=== PATIENT | male | born 1990 | race African-American/Black ===

== ENCOUNTER 2020-01-19 04:16 | Emergency (ER) | payer MEDICAID ==
[2020-01-19] MEDS ORDERED: Ondansetron 4 MG/2 ML SDV IVPUSH ONE ×2 (04:52→07:34)
[2020-01-19] MEDS ORDERED: HYDROmorphone 0.5 MG/0.5 ML Syringe IVPUSH ONE (04:52)
[2020-01-19] MEDS ORDERED: Sodium Chloride 0.9% 1,000 ML IV SCH (05:00)
--- NOTE | 2020-01-19 05:06 | EDM.PDOC ---
ED HPI GENERAL MEDICAL PROBLEM - General Chief Complaint: Gastrointestinal Problem Stated Complaint: VOMITTING PAIN HAS CANCER Time Seen by Provider: 01/19/20 04:52 Source of Information: Reports: Patient History Limitations: Reports: No Limitations - History of Present Illness INITIAL COMMENTS - FREE TEXT/NARRATIVE: This is a 29-year-old male. He states he has non-Hodgkin's lymphoma and he had chemotherapy about a year ago and he has lesions to his back and he is going to get radiation here pretty soon to his back to help with those lesions. He is on Dilaudid 2 mg every 4 hours for his back pain. Apparently 2 days ago he started having some difficulty in keeping food and fluids down so he says he has not been taking his pain medications for the last 2 days. Now he is getting abdominal cramps and additional nausea and vomiting and he comes to the ER for evaluation. He has been on the Dilaudid for at least a year. He states he has not run out of his medications but he just has not been able to keep them down. He denies any significant fever or chills. Have some mild diarrhea. Back Pain Score (Numeric/FACES): 10 - Related Data Allergies Allergy/AdvReac Type Severity Reaction Status Date / Time haloperidol [From Haldol] Allergy Shortness Verified 01/19/20 04:31 of Breath ketorolac [From Toradol] Allergy Shortness Verified 01/19/20 04:31 of Breath metoclopramide [From Reglan] Allergy Shortness Verified 01/19/20 04:31 of Breath prochlorperazine Allergy Shortness Verified 01/19/20 04:31 [From Compazine] of Breath Home Meds: Home Meds Docusate Sodium [Colace] 100 mg PO DAILY 01/19/20 [History] HYDROmorphone [Dilaudid] 2 mg PO Q4H PRN 01/19/20 [History] Hydrocodone/Acetaminophen [Hydrocodon-Acetaminophen 5-325] 1 each PO Q4H PRN # 15 tablet 01/19/20 [Rx] Ondansetron HCl [Zofran] 4 mg PO Q6H PRN #20 tablet 01/19/20 [Rx] Pantoprazole Sodium [Protonix] 20 mg PO DAILY 01/19/20 [History] Promethazine [Phenadoz] 25 mg .XX Q6H PRN #12 supp 01/19/20 [Rx] diphenhydrAMINE [Benadryl] 25 mg PO BID 01/19/20 [History] Past Medical History Gastrointestinal History: Reports: Other (See Below) Other Gastrointestinal History: intussucepsion Musculoskeletal History: Reports: Other (See Below) Other Musculoskeletal History: bone marrow biopsy, spinal tap. Oncologic (Cancer) History: Reports: Non-Hodgkin's Lymphoma Social & Family History - Tobacco Use Smoking Status *Q: Never Smoker - Recreational Drug Use Recreational Drug Use: Yes Drug Use in Last 12 Months: Yes Recreational Drug Type: Reports: Marijuana/Hashish ED ROS GENERAL - Review of Systems Review Of Systems: See Below Constitutional: Denies: Fever, Chills HEENT: Reports: No Symptoms Respiratory: Denies: Shortness of Breath, Cough Cardiovascular: Denies: Chest Pain Endocrine: Reports: No Symptoms GI/Abdominal: Reports: Abdominal Pain, Diarrhea, Nausea, Vomiting : Reports: No Symptoms Musculoskeletal: Reports: Back Pain Skin: Reports: No Symptoms Neurological: Reports: No Symptoms Psychiatric: Reports: No Symptoms Hematologic/Lymphatic: Reports: No Symptoms ED EXAM, GI/ABD - Physical Exam Exam: See Below Exam Limited By: No Limitations General Appearance: Alert, WD/WN, Mild Distress Eyes: Bilateral: Normal Appearance Ears: Normal External Exam, Normal Canal, Normal TMs Nose: Normal Inspection Throat/Mouth: Normal Inspection, Normal Lips, Normal Voice, No Airway Compromise , Other (Teeth are in very poor repair with advanced dental caries) Head: Normocephalic Neck: Supple Respiratory/Chest: No Respiratory Distress, Lungs Clear, Normal Breath Sounds Cardiovascular: Regular Rate, Rhythm, No Murmur GI/Abdominal Exam: Other (Complains of tenderness all over his abdomen but there is no masses and no rebound noted, bowel sounds are decreased) Back Exam: Full Range of Motion, Other (Planes of pain in his mid and lower back area no obvious abnormality noted) Extremities: Normal Inspection, Normal Range of Motion Neurological: Alert, Oriented Psychiatric: Anxious Skin Exam: Warm, Dry Course - Vital Signs Last Recorded V/S: Last Vital Signs Temp 98.8 F 01/19/20 04:32 Pulse 64 01/19/20 08:05 Resp 19 01/19/20 04:32 BP 120/73 01/19/20 08:05 Pulse Ox 100 01/19/20 08:05 - Orders/Labs/Meds Orders: Active Orders 24 hr Category Date Time Status Sodium Chloride 0.9% [Normal Saline] 1,000 ml Med 01/19/20 05:00 Active IV ASDIRECTED Medication Orders Sodium Chloride (Normal Saline) 1,000 mls @ 1,000 mls/hr IV ASDIRECTED MARLENE Last Admin: 01/19/20 05:43 Dose: 1,000 mls/hr Labs: Laboratory Tests 01/19/20 01/19/20 Range/Units 05:16 05:16 WBC 8.93 (4.23-9.07) K/mm3 RBC 5.19 (4.63-6.08) M/mm3 Hgb 14.8 (13.7-17.5) gm/dl Hct 43.4 (40.1-51.0) % MCV 83.6 (79.0-92.2) fl MCH 28.5 (25.7-32.2) pg MCHC 34.1 (32.2-35.5) g/dl RDW Std Deviation 41.9 (35.1-43.9) fL Plt Count 188 (163-337) K/mm3 MPV 10.6 (9.4-12.3) fl Neut % (Auto) 64.0 (34.0-67.9) % Lymph % (Auto) 23.0 (21.8-53.1) % [place] % (Auto) 10.1 (5.3-12.2) % Eos % (Auto) 2.0 (0.8-7.0) Baso % (Auto) 0.9 (0.1-1.2) % Neut # (Auto) 5.72 H (1.78-5.38) K/mm3 Lymph # (Auto) 2.05 (1.32-3.57) K/mm3 [place] # (Auto) 0.90 H (0.30-0.82) K/mm3 Eos # (Auto) 0.18 (0.04-0.54) K/mm3 Baso # (Auto) 0.08 (0.01-0.08) K/mm3 Sodium 143 (136-145) mEq/L Potassium 3.4 L (3.5-5.1) mEq/L Chloride 105 (98-107) mEq/L Carbon Dioxide 30 (21-32) mEq/L Anion Gap 11.4 (5-15) BUN 9 (7-18) mg/dL Creatinine 1.0 (0.7-1.3) mg/dL Est Cr Clr Drug Dosing 94.08 mL/min Estimated GFR (MDRD) > 60 (>60) mL/min BUN/Creatinine Ratio 9.0 L (14-18) Glucose 89 (74-106) mg/dL Calcium 8.6 (8.5-10.1) mg/dL Total Bilirubin 0.6 (0.2-1.0) mg/dL AST 16 (15-37) U/L ALT 27 (16-63) U/L Alkaline Phosphatase 72 (46-116) U/L Total Protein 7.2 (6.4-8.2) g/dl Albumin 3.9 (3.4-5.0) g/dl Globulin 3.3 gm/dL Albumin/Globulin Ratio 1.2 (1-2) Meds: Medications Generic Name Dose Route Start Last Admin Trade Name Freq PRN Reason Stop Dose Admin Sodium Chloride 1,000 mls @ 1,000 mls/hr 01/19/20 05:00 01/19/20 05:43 Normal Saline IV 1,000 mls/hr ASDIRECTED MARLENE Administration Discontinued Medications Generic Name Dose Route Start Last Admin Trade Name Freq PRN Reason Stop Dose Admin Hydromorphone HCl 0.5 mg 01/19/20 04:52 01/19/20 05:45 Dilaudid IVPUSH 01/19/20 04:53 0.5 mg ONETIME ONE Administration Hydromorphone HCl 1 mg 01/19/20 07:34 01/19/20 07:39 Dilaudid IVPUSH 01/19/20 07:35 1 mg ONETIME ONE Administration Ondansetron HCl 4 mg 01/19/20 04:52 01/19/20 05:44 Zofran IVPUSH 01/19/20 04:53 4 mg ONETIME ONE Administration Ondansetron HCl 4 mg 01/19/20 07:34 01/19/20 07:39 Zofran IVPUSH 01/19/20 07:35 4 mg ONETIME ONE Administration - Re-Assessments/Exams Free Text/Narrative Re-Assessment/Exam: 01/19/20 05:35 I attempted to find some records on the patient and his pain medication use from [place] as well as from here when I pull up his record he is not received any pain medications that have been documented in the monitoring system from [place] since June 2019. At that time he was on hydrocodone and oxycodone but he is never been on Dilaudid. When he came appear November he got promethazine with codeine syrup from 2 different physicians but no Dilaudid. He states he gotten Dilaudid from his doctors but I cannot find any record. He indicates he will attempt to find the record for me. 01/19/20 07:35 The patient was not able to get any medical records for me. He says because of the time zone difference he will be till later this morning that he can get anything. I will give him some more Zofran and a milligram of Dilaudid after which I will give him a prescription for some Zofran and some hydrocodone for home but he has to follow-up with his family doctor since we do not treat chronic pain in the ER. The patient states that he understands. Departure - Departure Time of Disposition: 07:51 Disposition: Home, Self-Care 01 Condition: Fair Clinical Impression: Abdominal cramps Back pain Qualifiers: Back pain location: low back pain Chronicity: chronic Back pain laterality: bilateral Sciatica presence: without sciatica Qualified Code(s): M54.5 - Low back pain Nausea and vomiting Qualifiers: Vomiting type: unspecified Vomiting Intractability: non-intractable Qualified Code(s): R11.2 - Nausea with vomiting, unspecified Non Hodgkin's lymphoma Qualifiers: Non-Hodgkin lymphoma type: unspecified type Lymphoma site: unspecified region Qualified Code(s): C85.90 - Non-Hodgkin lymphoma, unspecified, unspecified site - Discharge Information *PRESCRIPTION DRUG MONITORING PROGRAM REVIEWED*: Yes *COPY OF PRESCRIPTION DRUG MONITORING REPORT IN PATIENT KATHLEEN: No Prescriptions: Hydrocodone/Acetaminophen [Hydrocodon-Acetaminophen 5-325] 1 each PO Q4H PRN # 15 tablet PRN Reason: Pain Ondansetron HCl [Zofran] 4 mg PO Q6H PRN #20 tablet PRN Reason: Nausea Promethazine [Phenadoz] 25 mg .XX Q6H PRN #12 supp PRN Reason: Nausea Instructions: Nausea and Vomiting, Adult, [id number], Dehydration, Adult, [id number] Referrals: Madai Morlaez MD [Primary Care Provider] - Forms: ED Department Discharge Additional Instructions: Take the medicine for nausea and pain as needed, continue to drink lots of fluids, you must follow-up with your doctor this week for recheck and additional medications, would be rico to have some medical information with you regarding your diagnosis and your pain medications that you have received, return to the ER as needed Sepsis Event Note - Evaluation Sepsis Screening Result: No Definite Risk - Focused Exam Vital Signs: Vital Signs Temp Pulse Resp BP Pulse Ox 01/19/20 08:05 64 120/73 100 01/19/20 04:32 98.8 F 67 19 124/75 98 Date Exam was Performed: 01/19/20 Time Exam was Performed: 08:06 - My Orders Last 24 Hours: My Active Orders 01/19/20 05:00 Sodium Chloride 0.9% [Normal Saline] 1,000 ml IV ASDIRECTED - Assessment/Plan Last 24 Hours: My Active Orders 01/19/20 05:00 Sodium Chloride 0.9% [Normal Saline] 1,000 ml IV ASDIRECTED
[2020-01-19] MEDS ORDERED: HYDROmorphone 1 MG/ML Syringe IVPUSH ONE (07:34)
== END 2020-01-19 08:09 | disposition home or self-care (01) ==
LOC: JD.ED 04:16
DX: M54.5 Low back pain (principal); R11.2 Nausea with vomiting, unspecified; R10.9 Unspecified abdominal pain; C85.90 Non-Hodgkin lymphoma, unspecified, unspecified site; Z88.8 Allergy status to other drugs, medicaments and biological substances; Z79.899 Other long term (current) drug therapy
CPT/HCPCS: 36415; 80053; 85025; 96361; 96374; 96375; 96376; 99284; J1170; J2405; J7030; 99285